=== PATIENT | male | born 1990 | race Hispanic/Latino ===

== ENCOUNTER 2018-06-11 20:38 | Emergency (ER) | payer OTHER ==
[2018-06-11 20:46] VITALS: BP 144/86; PULSE 79; RESP 16; TEMP 98.5; O2SAT 100
[2018-06-11] MEDS ORDERED: Silver Sulfadiazine 1% Cream (20 gm) TOP STA (20:58)
[2018-06-11] MEDS ORDERED: Tdap Vaccine 0.5 ml Vial (10-64 yrs) IM ONE ×2 (20:58→21:04)
[2018-06-11] MEDS ORDERED: Silver Sulfadiazine 1% CREAM (50 gm) ONE (21:05)
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
== END 2018-06-11 21:44 | disposition home or self-care (01) ==
LOC: H.ER 20:38
DX: T23.252A Burn of second degree of left palm, initial encounter (principal); X15.3XXA Contact with hot saucepan or skillet, initial encounter; Y92.89 Other specified places as the place of occurrence of the external cause; I73.00 Raynaud's syndrome without gangrene; F90.9 Attention-deficit hyperactivity disorder, unspecified type